=== PATIENT | male | born 1975 | race African-American/Black ===

== ENCOUNTER 2018-12-01 13:18 | Inpatient (IN) | payer SELFPAY ==
[~2018-12-01 13:18] MED LIST: ISOVUE-370 76%-LOCM 1 ML ONE
[2018-12-01] MEDS ORDERED: Morphine 4 MG/ML VIAL ONE ×2 (13:48→15:48)
[2018-12-01] MEDS ORDERED: Ketorolac Tromethamine 30 MG/ML VIAL ONE (13:48)
[2018-12-01 14:11] LABS: #Basophils 0.1 thou/uL (0.0-0.2); #Eosinphils 0.2 thou/uL (0.0-0.7); #Lymphocytes 1.9 thou/uL (1.20-3.40); #Monocytes 1.4 thou/uL (0.11-0.59); #Neutrophils 14.9 thou/uL (1.40-6.50); %Basophils 0.6 % (0.0-1.0); %Eosinophils 1.1 % (0.0-10.0); %Lymphocytes 10.1 % (21.0-51.0); %Monocytes 7.7 % (0.0-10.0); %Neutrophils 80.5 % (42.0-75.0); Hemoglobin 13.9 g/dL (14.0-18.0); Mean Corpuscular HGB CONC 30.8 g/dL (32.0-36.0); Mean Corpuscular Hemoglobin 24.7 pg (27.0-31.0); Mean Corpuscular Volume 80.2 fL (78.0-98.0); Mean Platelet Volume 8.7 fL (7.4-10.4); Platelet Count 174 thou/uL (130-400); RBC Distribution Width 13.9 % (11.5-14.5); Red Blood Cell (RBC) Count 5.61 mill/uL (4.70-6.10); White Blood Cell (WBC) Count 18.5 thou/uL (4.8-10.8)
[2018-12-01 14:19] LABS: Prothrombin Time 13.4 SEC (12.0-14.7)
[2018-12-01 14:44] LABS: ALT (SGPT) 18 U/L (8-55); AST (SGOT) 15 U/L (5-34); Albumin 4.6 g/dL (3.5-5.0); Alkaline Phosphatase 90 U/L (40-150); Anion Gap 12 mmol/L (10-20); BUN (Urea Nitrogen) 14 mg/dL (8.9-20.6); Bilirubin, Total 0.7 mg/dL (0.2-1.2); Calc. Creatinine Clearance 0 mL/min (70-130); Calcium 9.5 mg/dL (7.8-10.44); Carbon Dioxide 23 mmol/L (22-29); Chloride 107 mmol/L (98-107); Estimated GFR-MDRD 82; Globulin 3.1 g/dL (2.4-3.5); Glucose 102 mg/dL (70-105); Potassium 4.4 mmol/L (3.5-5.1); Protein, Total 7.7 g/dL (6.0-8.3); Sodium 138 mmol/L (136-145)
--- NOTE | 2018-12-01 15:10 | ULT ---
ULTRASOUND WITH DOPPLER DUPLEX VENOUS LOWER EXTREMITY LEFT: DATE: TIME: 1430 hours HISTORY: 43-year-old male with left lower extremity pain and swelling. Dr. Rios reported the deep venous thrombosis of the entire left lower extremity by telephone to nurse, Cherry Landry, of the emergency department at 1449 hours on 12/01/18. She was instructed to notify Dr. Greer as soon as possible. TECHNIQUE: Color flow Doppler, spectral waveform analysis of pulsed Doppler, and lozano-scale imaging with olegario mar and augmentation, were used to evaluate the left common femoral, femoral, popliteal, posterior t ibial, and superficial femoral, veins; and the proximal portions of the profunda femoral and greater saphenous, veins. FINDINGS: There is thrombus expanding and occluding the left common femoral, greater saphenous, profunda femora l, femoral, popliteal, and posterior tibial veins. There is little or no flow. IMPRESSION: Positive for acute, occlusive deep venous thrombosis of the entire left lower extremity. CODE CR. JN Earl POS: PAULETTE
--- NOTE | 2018-12-01 15:24 | CT ---
CT PULMONARY ANGIOGRAM WITH IV CONTRAST AND 3D POSTPROCESSING: Date: 12/01/18 HISTORY: Near syncope, left lower extremity deep venous thrombosis. FINDINGS: There is good contrast opacification of the pulmonary arterial vasculature without filling defects to suggest pulmonary embolism. The thoracic aorta is well opacified without aneurysm or dissection. No pneumothoraces, focal areas of consolidation, or lung masses are seen. There is scarring in the right lung. No pleural or pericardial effusions are noted. There are mild degenerative changes in the spin e. IMPRESSION: No CT evidence of pulmonary embolism. POS: [facility]
[2018-12-01] MEDS ORDERED: Enoxaparin Sodium 60 MG/0.6 ML SYRINGE ONE (15:48)
[2018-12-01] MEDS ORDERED: Ondansetron ODT 4 MG TAB PO PRN (16:36)
[2018-12-01] MEDS ORDERED: Acetaminophen 325 MG TAB PO PRN (16:36)
--- NOTE | 2018-12-01 16:54 | HP ---
REASON FOR ADMISSION: Extensive DVT of entire left lower extremity. HISTORY OF PRESENT ILLNESS AND REVIEW OF SYSTEMS: Mr. Queen is a pleasant 43-year-old man, who works as a regional company truck driver, presenting with progressively worsening swelling of the left leg from his calf up to his upper thigh. He first noted this 2 days ago, but has had intermittent aching in the left upper thigh since early last week. The patient states today he had further difficulty mobilizing at home and began to feel numbness in the left leg. He broke out in sweats and was concerned about a stroke, therefore contacted EMS. Since coming into the ED, the numbness has settled and his sensation is now intact. He has been given morphine, which eased the pain in the left leg. He has undergone a Doppler ultrasound showing an acute occlusive deep venous thrombosis of the entire left lower extremity. A CT angiogram was done showing no CT evidence of a pulmonary embolism. Laboratory studies done notable for white count of 18, otherwise unremarkable. The patient is afebrile with a temperature of 97.7. He has been started on Lovenox. At present, the patient denies having any chest pain, palpitations, or shortness of breath. He denies having any cough or hemoptysis. Has not fallen while in recent days except for symptoms associated with his leg. 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 He does tend to have long periods of sitting in between his jobs, which could be as long as 8 to 9 hours. However, during that time, he is moving about or resting in bed in the back of the truck. The patient denies having blood clots in the past. Denies any past medical problems. He reports having an uncle diagnosis of blood clots, but otherwise no other family members with blood clots or blood disorders. Denies any recent long flights. He reports having a very good appetite and has not had any abnormal loss of weight. Reports being healthy overall. He has regular stools. Denies any urinary symptoms. All other review of systems are negative. PAST MEDICAL HISTORY: None. PAST SURGICAL HISTORY: None. SOCIAL HISTORY: The patient lives alone and works as a regional company truck driver as mentioned above. He smokes 5 to 6 Black and Milds daily since he was 21. Reports no weekly use of cannabis when he is not working. Reports occasional cocaine use and the last time was on '. Reports occasional alcohol use and states it is usually 1 to 2 times a month. Denies any binge drinking. ALLERGIES: NO KNOWN DRUG ALLERGIES. CURRENT MEDICATIONS: None. PHYSICAL EXAMINATION: GENERAL: The patient appears well developed, well nourished, in no acute distress. He was found resting comfortably on the stretcher. VITAL SIGNS: Temperature 97.7, pulse 71, respirations 17, blood pressure 126/75, and O2 saturation 99% on room air. HEENT: Normocephalic and atraumatic. Pupils are equal, round, and reactive to light. Sclerae are without icterus. Oropharynx is clear. NECK: Supple without lymphadenopathy. LUNGS: Clear to auscultation bilaterally without wheezes, rales, or rhonchi. CARDIAC: Regular rate and rhythm without audible murmurs, rubs, or gallops. ABDOMEN: Soft, nontender, and nondistended. Normoactive bowel sounds present. EXTREMITIES: The entire left leg is significantly enlarged as compared to the right leg. His calf is very tense. No edema. Sensation intact. Pedal pulses are strong and equal bilaterally. NEUROLOGIC: Alert and oriented x3. SKIN: Without rash or jaundice. LABORATORY DATA: White blood count 18.5, hemoglobin 13.9, hematocrit 45, and platelets 124. PT 13.4, INR 1.0, and PTT 24. Sodium 138, potassium 4.4, BUN 14, creatinine 1.18, GFR 82, total bilirubin 0.7, alkaline phosphatase 90, AST 15, and ALT 18. Troponin less than 0.010. Lactic acid 1.1. IMAGING DATA: 1. Venous ultrasound of the left extremity showed a thrombus expanding and occluding the left common femoral, greater saphenous, profunda femoral, femoral, popliteal, and posterior tibialis veins with little or no flow. 2. CT of chest, no CT evidence of pulmonary embolism. IMPRESSION AND PLAN: Mr. Queen will be admitted for management of the following conditions; 1. Extensive left extremity deep vein thrombosis. The patient is being started on Lovenox, we will continue. No mechanical SCDs. 2. Leukocytosis. The patient is afebrile with no signs of infection. Continue to monitor. 3. Anticoagulation. As above, the patient is being served on Lovenox with plans to discharge on Eliquis if he has access. 4. Gastrointestinal prophylaxis. The patient's case was discussed with Dr. Jung, who agrees with plan of care as described above. Job ID: [id number]
--- NOTE | 2018-12-01 17:13 | RAD ---
PA AND LATERAL VIEWS CHEST: Date: 12/01/18 HISTORY: Fever. Left leg pain. FINDINGS: The heart size is normal. The lungs are expanded without focal areas of consolidation, pneumothoraces , or pleural effusions. No acute osseous abnormalities are seen. IMPRESSION: No radiographic evidence of acute cardiopulmonary process. POS: [facility]
[2018-12-01 19:27] VITALS: BMI 19.9
[2018-12-01] MEDS: Senokot S 8.6-50 MG TAB PO SCH (21:17)
[2018-12-01] MEDS: Famotidine 20 MG TAB PO SCH (21:17)
[2018-12-01] MEDS ORDERED: traMADol HCl 50 MG TAB PO SCH (23:15)
[2018-12-02] MEDS: Apixaban 5 MG TAB PO SCH ×2 (05:10→17:50)
[2018-12-02 05:33] LABS: #Basophils 0.1 thou/uL (0.0-0.2); #Eosinphils 0.4 thou/uL (0.0-0.7); #Monocytes 1.4 thou/uL (0.11-0.59); #Neutrophils 7.5 thou/uL (1.40-6.50); %Basophils 1.1 % (0.0-1.0); %Lymphocytes 24.2 % (21.0-51.0); %Monocytes 11.1 % (0.0-10.0); %Neutrophils 60.6 % (42.0-75.0); Hemoglobin 12.5 g/dL (14.0-18.0); Mean Corpuscular HGB CONC 31.7 g/dL (32.0-36.0); Mean Corpuscular Hemoglobin 25.2 pg (27.0-31.0); Mean Corpuscular Volume 79.4 fL (78.0-98.0); Mean Platelet Volume 8.6 fL (7.4-10.4); Platelet Count 160 thou/uL (130-400); RBC Distribution Width 13.7 % (11.5-14.5); Red Blood Cell (RBC) Count 4.97 mill/uL (4.70-6.10); White Blood Cell (WBC) Count 12.4 thou/uL (4.8-10.8)
[2018-12-02 05:51] LABS: Anion Gap 11 mmol/L (10-20); BUN (Urea Nitrogen) 15 mg/dL (8.9-20.6); Calc. Creatinine Clearance 81 mL/min (70-130); Carbon Dioxide 27 mmol/L (22-29); Chloride 106 mmol/L (98-107); Estimated GFR-MDRD Greater than 90; Glucose 98 mg/dL (70-105); Potassium 4.3 mmol/L (3.5-5.1); Sodium 140 mmol/L (136-145)
[2018-12-02] MEDS: Acetaminophen/Codeine 30-300mg Tablet PO PRN ×2 (08:39→16:34)
[2018-12-02] MEDS: Senokot S 8.6-50 MG TAB PO SCH ×2 (08:41→19:58)
[2018-12-02] MEDS: Famotidine 20 MG TAB PO SCH ×2 (08:41→19:57)
--- NOTE | 2018-12-02 12:57 | PDOC.PN ---
- Subjective Encounter Start Date: 12/02/18 Encounter Start Time: 09:20 Pt seen for followup re: DVT. Reports LLE pain and swelling. - Objective Resuscitation Status - Order Detail: 12/01/18 16:33 Resuscitation Status Routine Co-Sign Provider: Resuscitation Status: FULL: Full Resuscitation Vital Signs & Weight: Vital Signs (12 hours) Temp Pulse Resp BP Pulse Ox 12/02/18 11:37 98.0 F 69 18 112/68 98 12/02/18 08:17 98.2 F 75 14 108/71 97 12/02/18 08:00 98 12/02/18 04:00 97.9 F 75 20 118/74 98 Weight Weight 134 lb 14.766 oz Result Diagrams: 12/02/18 05:08 12/02/18 05:07 Phys Exam - Physical Examination Constitutional: NAD HEENT: moist MMs, sclera anicteric, oral pharynx no lesions, 2+ tonsils Neck: no nodes, no JVD, supple, full ROM Respiratory: clear to auscultation bilateral Cardiovascular: RRR, no rub S1, S2 Gastrointestinal: soft, non-tender, no distention, positive bowel sounds Musculoskeletal: edema present LLE swelling Neurological: moves all 4 limbs Psychiatric: normal affect, A&O x 3 Dx/Plan (1) DVT (deep venous thrombosis) Code(s): I82.409 - ACUTE EMBOLISM AND THOMBOS UNSP DEEP VN UNSP LOWER EXTREMITY Status: Acute Comment: Discussed with pt re: risks vs benefits of warfarin vs NOACS. Pt deciding. (2) Tobacco abuse Code(s): Z72.0 - TOBACCO USE Status: Chronic Comment: Pt counseled re: tobacco cessation. - Plan * . Review of Systems - Review of Systems Constitutional: negative: fever, chills, sweats, weakness, malaise Respiratory: negative: Cough, Shortness of Breath, SOB with Excertion, Pleuritic Pain, Wheezing Cardiovascular: edema. negative: chest pain, palpitations, orthopnea, paroxysmal nocturnal dyspnea, light headedness Gastrointestinal: negative: Nausea, Vomiting, Abdominal Pain, Diarrhea, Constipation, Melena, Hematochezia Genitourinary: negative: Dysuria, Frequency, Incontinence, Hematuria, Retention Musculoskeletal: Leg Pain. negative: Neck Pain, Shoulder Pain, Arm Pain, Back Pain, Hand Pain, Foot Pain - Medications/Allergies Allergies/Adverse Reactions: Allergies Allergy/AdvReac Type Severity Reaction Status Date / Time No Known Allergies Allergy Unverified 12/01/18 16:43 Medications: Current Medications Acetaminophen (Tylenol) 650 mg PO Q4H PRN PRN Reason: Headache/Fever/Mild Pain (1-3) Acetaminophen/Codeine Phosphate (Tylenol #3) 1 tab PO Q6H PRN PRN Reason: Mild Pain (1-3) Acetaminophen/Codeine Phosphate (Tylenol #3) 2 tab PO Q6H PRN PRN Reason: Moderate Pain (4-6) Last Admin: 12/02/18 08:39 Dose: 2 tab Apixaban (Eliquis) 5 mg PO 0600,1800 [facility] Last Admin: 12/02/18 05:10 Dose: 5 mg Famotidine (Pepcid) 20 mg PO BID [facility] Last Admin: 12/02/18 08:41 Dose: 20 mg Ondansetron HCl (Zofran Odt) 4 mg PO Q6H PRN PRN Reason: Nausea/Vomiting Senna/Docusate Sodium (Senokot S) 2 tab PO BID [facility] Last Admin: 12/02/18 08:41 Dose: Not Given Sodium Chloride (Flush - Normal Saline) 10 ml IVF Q12HR PRN PRN Reason: Saline Flush Sodium Chloride (Flush - Normal Saline) 10 ml IVF PRN PRN PRN Reason: Saline Flush
[2018-12-02] MEDS: HYDROcodone/Acetaminophen 5/325 mg Tablet PO PRN (22:50)
[2018-12-03] MEDS: Apixaban 5 MG TAB PO SCH ×2 (06:06→17:07)
[2018-12-03] MEDS: HYDROcodone/Acetaminophen 5/325 mg Tablet PO PRN ×3 (06:06→23:04)
[2018-12-03] MEDS: Famotidine 20 MG TAB PO SCH ×2 (08:51→20:06)
[2018-12-03] MEDS: Senokot S 8.6-50 MG TAB PO SCH ×2 (08:51→20:05)
[2018-12-03] MEDS ORDERED: traMADol HCl 50 MG TAB PO PRN (12:31)
[2018-12-03] MEDS ORDERED: Iopamidol 370 76% 100 ML VIAL ONE (12:33)
[2018-12-03] MEDS ORDERED: Ketorolac Tromethamine 30 MG/ML VIAL IVP SCH (12:45)
--- NOTE | 2018-12-03 15:07 | CT ---
CT ABDOMEN AND PELVIS WITH IV CONTRAST: DATE: 12/03/2018. PROVIDED CLINICAL HISTORY: DVT, evaluate for occult malignancy. FINDINGS: Comparison CT angiogram of chest 12/01/2018. There is smoothly marginated pleural thickening seen at t he posteromedial and anterolateral aspects of the visualized right lower hemithorax. Simple-appearing cysts are seen involving the liver. The solid abdominal organs demonstrate an other grewal unremarkable CT appearance. There is no bowel dilatation, inflammatory fat stranding, free fluid, or lymph node enlargement appar ent. The osseous structures demonstrate no concerning osteoblastic or osteolytic lesions. Increased densi ty and thickening of the subcutaneous adipose layer and intermuscular fascial planes in the visualize d left upper extremity is compatible with the known history of left lower extremity DVT. IMPRESSION: 1. No evidence for an acute process involving the abdomen and pelvis. 2. Smoothly marginated pleural thickening involving portions of the right hemithorax, possibly refle cting sequelae of prior pleural inflammation. POS: [facility]
--- NOTE | 2018-12-03 17:58 | PDOC.PN ---
- Subjective Encounter Start Date: 12/03/18 Encounter Start Time: 09:20 Pt seen for followup re: DVT. Still has a lot of LLE pain. - Objective Resuscitation Status - Order Detail: 12/01/18 16:33 Resuscitation Status Routine Co-Sign Provider: Resuscitation Status: FULL: Full Resuscitation Vital Signs & Weight: Vital Signs (12 hours) Temp Pulse Resp BP Pulse Ox 12/03/18 16:00 98.2 F 74 18 99/62 97 12/03/18 12:40 98.0 F 71 18 102/65 98 12/03/18 08:10 97.9 F 77 18 112/69 98 12/03/18 08:00 98 Weight Weight 134 lb 14.766 oz I&O: 12/02/18 12/03/18 12/04/18 06:59 06:59 06:59 Output Total 600 Balance -600 Result Diagrams: 12/02/18 05:08 12/02/18 05:07 Phys Exam - Physical Examination Constitutional: NAD HEENT: moist MMs Neck: supple Respiratory: clear to auscultation bilateral Cardiovascular: RRR Gastrointestinal: soft LLE swelling Neurological: moves all 4 limbs Psychiatric: normal affect Dx/Plan (1) DVT (deep venous thrombosis) Code(s): I82.409 - ACUTE EMBOLISM AND THOMBOS UNSP DEEP VN UNSP LOWER EXTREMITY Status: Acute Comment: continue Eliquis, PRN pain medications (2) Tobacco abuse Code(s): Z72.0 - TOBACCO USE Status: Chronic Comment: Pt counseled re: tobacco cessation. - Plan * . Review of Systems - Review of Systems Respiratory: negative: Cough, Shortness of Breath, SOB with Excertion, Pleuritic Pain, Wheezing Cardiovascular: negative: chest pain, palpitations, orthopnea, paroxysmal nocturnal dyspnea, edema, light headedness Musculoskeletal: Leg Pain - Medications/Allergies Allergies/Adverse Reactions: Allergies Allergy/AdvReac Type Severity Reaction Status Date / Time No Known Allergies Allergy Unverified 12/01/18 16:43 Medications: Current Medications Acetaminophen (Tylenol) 650 mg PO Q4H PRN PRN Reason: Headache/Fever/Mild Pain (1-3) Acetaminophen/Codeine Phosphate (Tylenol #3) 1 tab PO Q6H PRN PRN Reason: Mild Pain (1-3) Hydrocodone Bitart/Acetaminophen (Ingalls 5/325) 1 tab PO Q6H PRN PRN Reason: Pain 4-6 Last Admin: 12/03/18 17:08 Dose: 1 tab Apixaban (Eliquis) 5 mg PO 0600,1800 [facility] Last Admin: 12/03/18 17:07 Dose: 5 mg Famotidine (Pepcid) 20 mg PO BID [facility] Last Admin: 12/03/18 08:51 Dose: 20 mg Ketorolac Tromethamine (Toradol) 15 mg IVP Q8H PRN PRN Reason: Pain Stop: 12/08/18 12:34 Ondansetron HCl (Zofran Odt) 4 mg PO Q6H PRN PRN Reason: Nausea/Vomiting Senna/Docusate Sodium (Senokot S) 2 tab PO BID [facility] Last Admin: 12/03/18 08:51 Dose: 2 tab Sodium Chloride (Flush - Normal Saline) 10 ml IVF Q12HR PRN PRN Reason: Saline Flush Sodium Chloride (Flush - Normal Saline) 10 ml IVF PRN PRN PRN Reason: Saline Flush Tramadol HCl (Ultram) 50 mg PO Q6H PRN PRN Reason: Moderate Pain (4-6) Tramadol HCl (Ultram) 100 mg PO Q6H PRN PRN Reason: Severe Pain (7-10)
[2018-12-03] MEDS: traMADol HCl 50 MG TAB PO PRN (20:06)
[2018-12-04] MEDS: traMADol HCl 50 MG TAB PO PRN ×3 (05:37→22:20)
[2018-12-04] MEDS: Apixaban 5 MG TAB PO SCH ×2 (05:42→17:25)
[2018-12-04] MEDS: HYDROcodone/Acetaminophen 5/325 mg Tablet PO PRN (09:07)
[2018-12-04] MEDS: Famotidine 20 MG TAB PO SCH ×2 (09:07→20:30)
[2018-12-04] MEDS: Senokot S 8.6-50 MG TAB PO SCH ×2 (09:07→20:31)
[2018-12-04] MEDS: Ketorolac Tromethamine 30 MG/ML VIAL IVP PRN ×2 (13:17→21:01)
--- NOTE | 2018-12-04 15:39 | PDOC.PN ---
- Subjective Encounter Start Date: 12/04/18 Encounter Start Time: 10:00 Pt seen for followup re: DVT. pain still +. walking with assistance. - Objective Resuscitation Status - Order Detail: 12/01/18 16:33 Resuscitation Status Routine Co-Sign Provider: Resuscitation Status: FULL: Full Resuscitation MAR Reviewed: Yes Vital Signs & Weight: Vital Signs (12 hours) Temp Pulse Resp BP Pulse Ox 12/04/18 08:10 98.0 F 78 18 103/58 L 97 12/04/18 08:00 97 12/04/18 04:00 97.7 F 68 16 103/58 L 97 Weight Weight 134 lb 14.766 oz I&O: 12/03/18 12/04/18 12/05/18 06:59 06:59 06:59 Intake Total 510 Output Total 600 Balance -90 Result Diagrams: 12/02/18 05:08 12/02/18 05:07 Additional Labs: Labs reviewed by me Phys Exam - Physical Examination Constitutional: NAD HEENT: moist MMs Neck: supple Respiratory: clear to auscultation bilateral Cardiovascular: RRR Gastrointestinal: soft Neurological: moves all 4 limbs Psychiatric: normal affect Dx/Plan (1) DVT (deep venous thrombosis) Code(s): I82.409 - ACUTE EMBOLISM AND THOMBOS UNSP DEEP VN UNSP LOWER EXTREMITY Status: Acute Comment: on Eliquis, continue PRN pain medications (2) Tobacco abuse Code(s): Z72.0 - TOBACCO USE Status: Chronic Comment: Pt counseled re: tobacco cessation. - Plan * . titrate pain medications, discharge when ambulation improves Review of Systems - Review of Systems Respiratory: negative: Cough, Shortness of Breath, SOB with Excertion, Pleuritic Pain, Wheezing Cardiovascular: negative: chest pain, palpitations, orthopnea, paroxysmal nocturnal dyspnea, edema, light headedness Musculoskeletal: Leg Pain - Medications/Allergies Allergies/Adverse Reactions: Allergies Allergy/AdvReac Type Severity Reaction Status Date / Time No Known Allergies Allergy Unverified 12/01/18 16:43 Medications: Current Medications Acetaminophen (Tylenol) 650 mg PO Q4H PRN PRN Reason: Headache/Fever/Mild Pain (1-3) Acetaminophen/Codeine Phosphate (Tylenol #3) 1 tab PO Q6H PRN PRN Reason: Mild Pain (1-3) Apixaban (Eliquis) 5 mg PO 0600,1800 [facility] Last Admin: 12/04/18 05:42 Dose: 5 mg Famotidine (Pepcid) 20 mg PO BID [facility] Last Admin: 12/04/18 09:07 Dose: 20 mg Ketorolac Tromethamine (Toradol) 15 mg IVP Q8H PRN PRN Reason: Pain Stop: 12/08/18 12:34 Last Admin: 12/04/18 13:17 Dose: 15 mg Ondansetron HCl (Zofran Odt) 4 mg PO Q6H PRN PRN Reason: Nausea/Vomiting Senna/Docusate Sodium (Senokot S) 2 tab PO BID [facility] Last Admin: 12/04/18 09:07 Dose: Not Given Sodium Chloride (Flush - Normal Saline) 10 ml IVF Q12HR PRN PRN Reason: Saline Flush Last Admin: 12/03/18 20:07 Dose: 10 ml Sodium Chloride (Flush - Normal Saline) 10 ml IVF PRN PRN PRN Reason: Saline Flush Tramadol HCl (Ultram) 50 mg PO Q6H PRN PRN Reason: Moderate Pain (4-6) Tramadol HCl (Ultram) 100 mg PO Q6H PRN PRN Reason: Severe Pain (7-10) Last Admin: 12/04/18 05:37 Dose: 100 mg
[2018-12-04] MEDS: Acetaminophen/Codeine 30-300mg Tablet PO PRN (19:24)
[2018-12-04 19:37] LABS: Bilirubin Negative (Negative); Blood, Urine Negative (Negative); Clarity CLEAR (Clear); Glucose, Urine (Dipstick) Negative (Negative); Leukocyte Negative (Negative); Nitrite Negative (Negative); Protein, Urine (Dipstick) Negative (Neg-Trace); Specific Gravity, Urine 1.035 (1.002-1.036); Urobilinogen 0.2 mg/dL (0.2-1.0); pH, Urine 5.5 (5.0-9.0)
[2018-12-04 19:38] LABS: Bacteria/HPF None Seen HPF (None Seen); Hyaline Casts/LPF 4-6 HYALINE CAST LPF (0-3 Hyaline); Pathc Cast-AUWi Flag 0.58 (0-2.49); RBC/HPF 0-3 HPF (0-3); Squamous Epithelial 0-3 HPF (0-3); WBC/HPF 0-3 HPF (0-3)
[2018-12-04 19:43] LABS: Urine Culture Reflex No No
[2018-12-05] MEDS: Acetaminophen/Codeine 30-300mg Tablet PO PRN ×2 (02:03→17:49)
[2018-12-05] MEDS: Apixaban 5 MG TAB PO SCH ×2 (05:49→17:49)
[2018-12-05] MEDS: traMADol HCl 50 MG TAB PO PRN ×3 (06:18→20:36)
[2018-12-05] MEDS: Ketorolac Tromethamine 30 MG/ML VIAL IVP PRN ×2 (10:03→17:50)
[2018-12-05] MEDS: Senokot S 8.6-50 MG TAB PO SCH ×2 (10:05→20:35)
[2018-12-05] MEDS: Famotidine 20 MG TAB PO SCH ×2 (10:05→20:35)
--- NOTE | 2018-12-05 14:30 | PDOC.PN ---
- Subjective Encounter Start Date: 12/05/18 Encounter Start Time: 09:20 Pt seen for followup re: DVT. Says leg pain is 05/04. - Objective Resuscitation Status - Order Detail: 12/01/18 16:33 Resuscitation Status Routine Co-Sign Provider: Resuscitation Status: FULL: Full Resuscitation MAR Reviewed: Yes Vital Signs & Weight: Vital Signs (12 hours) Temp Pulse Resp BP Pulse Ox 12/05/18 08:04 98.1 F 69 16 121/76 97 12/05/18 08:00 97 Weight Weight 134 lb 14.766 oz I&O: 12/04/18 12/05/18 12/06/18 06:59 06:59 06:59 Intake Total 510 810.5 Output Total 600 Balance -90 810.5 Result Diagrams: 12/06/18 05:24 12/06/18 05:24 Additional Labs: labs reviewed by me Phys Exam - Physical Examination Constitutional: NAD HEENT: moist MMs Neck: supple Respiratory: clear to auscultation bilateral Cardiovascular: RRR Gastrointestinal: soft LLE swelling Neurological: moves all 4 limbs Psychiatric: normal affect Dx/Plan (1) DVT (deep venous thrombosis) Code(s): I82.409 - ACUTE EMBOLISM AND THOMBOS UNSP DEEP VN UNSP LOWER EXTREMITY Status: Acute Comment: continue Eliquis and PRN pain medications (2) Tobacco abuse Code(s): Z72.0 - TOBACCO USE Status: Chronic - Plan plan discussed w/ family, out of bed/ambulate * . Review of Systems - Review of Systems Cardiovascular: negative: chest pain, palpitations, orthopnea, paroxysmal nocturnal dyspnea, edema, light headedness Gastrointestinal: negative: Nausea, Vomiting, Abdominal Pain, Diarrhea, Constipation, Melena, Hematochezia - Medications/Allergies Allergies/Adverse Reactions: Allergies Allergy/AdvReac Type Severity Reaction Status Date / Time No Known Allergies Allergy Unverified 12/01/18 16:43 Medications: Current Medications Acetaminophen (Tylenol) 650 mg PO Q4H PRN PRN Reason: Headache/Fever/Mild Pain (1-3) Acetaminophen/Codeine Phosphate (Tylenol #3) 1 tab PO Q6H PRN PRN Reason: Mild Pain (1-3) Last Admin: 12/05/18 02:03 Dose: 1 tab Apixaban (Eliquis) 5 mg PO 0600,1800 [facility] Last Admin: 12/05/18 05:49 Dose: 5 mg Famotidine (Pepcid) 20 mg PO BID [facility] Last Admin: 12/05/18 10:05 Dose: 20 mg Ketorolac Tromethamine (Toradol) 15 mg IVP Q8H PRN PRN Reason: Pain Stop: 12/08/18 12:34 Last Admin: 12/05/18 10:03 Dose: 15 mg Ondansetron HCl (Zofran Odt) 4 mg PO Q6H PRN PRN Reason: Nausea/Vomiting Senna/Docusate Sodium (Senokot S) 2 tab PO BID [facility] Last Admin: 12/05/18 10:05 Dose: 2 tab Sodium Chloride (Flush - Normal Saline) 10 ml IVF Q12HR PRN PRN Reason: Saline Flush Last Admin: 12/03/18 20:07 Dose: 10 ml Sodium Chloride (Flush - Normal Saline) 10 ml IVF PRN PRN PRN Reason: Saline Flush Tramadol HCl (Ultram) 50 mg PO Q6H PRN PRN Reason: Moderate Pain (4-6) Tramadol HCl (Ultram) 100 mg PO Q6H PRN PRN Reason: Severe Pain (7-10) Last Admin: 12/05/18 14:24 Dose: 100 mg
[2018-12-06] MEDS: Acetaminophen/Codeine 30-300mg Tablet PO PRN ×4 (00:33→21:31)
[2018-12-06] MEDS: Ketorolac Tromethamine 30 MG/ML VIAL IVP PRN ×3 (02:09→17:34)
[2018-12-06] MEDS: Apixaban 5 MG TAB PO SCH ×2 (05:51→17:34)
[2018-12-06 05:57] LABS: #Basophils 0.1 thou/uL (0.0-0.2); #Eosinphils 0.5 thou/uL (0.0-0.7); #Lymphocytes 2.8 thou/uL (1.20-3.40); #Monocytes 1.1 thou/uL (0.11-0.59); #Neutrophils 6.1 thou/uL (1.40-6.50); %Basophils 0.9 % (0.0-1.0); %Lymphocytes 26.2 % (21.0-51.0); %Monocytes 9.9 % (0.0-10.0); %Neutrophils 58.1 % (42.0-75.0); Hemoglobin 11.2 g/dL (14.0-18.0); Mean Corpuscular Hemoglobin 24.6 pg (27.0-31.0); Mean Corpuscular Volume 79.3 fL (78.0-98.0); Mean Platelet Volume 8.7 fL (7.4-10.4); Platelet Count 194 thou/uL (130-400); RBC Distribution Width 13.4 % (11.5-14.5); Red Blood Cell (RBC) Count 4.56 mill/uL (4.70-6.10); White Blood Cell (WBC) Count 10.6 thou/uL (4.8-10.8)
[2018-12-06 06:32] LABS: Anion Gap 11 mmol/L (10-20); BUN (Urea Nitrogen) 20 mg/dL (8.9-20.6); Calc. Creatinine Clearance 66 mL/min (70-130); Calcium 9.2 mg/dL (7.8-10.44); Carbon Dioxide 28 mmol/L (22-29); Chloride 105 mmol/L (98-107); Estimated GFR-MDRD 75; Glucose 84 mg/dL (70-105); Sodium 139 mmol/L (136-145)
[2018-12-06] MEDS: Famotidine 20 MG TAB PO SCH ×2 (07:59→20:15)
[2018-12-06] MEDS: Senokot S 8.6-50 MG TAB PO SCH ×2 (08:00→20:15)
[2018-12-06] MEDS ORDERED: Bisacodyl 5 MG TAB PO PRN (10:47)
[2018-12-06] MEDS: traMADol HCl 50 MG TAB PO PRN ×2 (10:51→19:38)
[2018-12-06] MEDS ORDERED: Bisacodyl 5 MG TAB PO SCH (11:00)
--- NOTE | 2018-12-06 18:59 | PDOC.PN ---
- Subjective Encounter Start Date: 12/06/18 Encounter Start Time: 18:57 Pt seen for followup re: DVT. c/o worsening leg swelling. No fevers or chills. - Objective Resuscitation Status - Order Detail: 12/01/18 16:33 Resuscitation Status Routine Co-Sign Provider: Resuscitation Status: FULL: Full Resuscitation MAR Reviewed: Yes Vital Signs & Weight: Vital Signs (12 hours) Temp Pulse Resp BP Pulse Ox 12/06/18 07:59 97 12/06/18 07:39 98.3 F 71 16 112/72 97 Weight Weight 134 lb 14.766 oz I&O: 12/05/18 12/06/18 12/07/18 06:59 06:59 06:59 Intake Total 810.5 820.5 Output Total 400 Balance 810.5 420.5 Result Diagrams: 12/06/18 05:24 12/06/18 05:24 Additional Labs: Labs reviewed by me Phys Exam - Physical Examination Constitutional: NAD HEENT: moist MMs Neck: supple Respiratory: clear to auscultation bilateral Cardiovascular: RRR Gastrointestinal: soft LLE swelling Neurological: moves all 4 limbs Psychiatric: normal affect Dx/Plan (1) DVT (deep venous thrombosis) Code(s): I82.409 - ACUTE EMBOLISM AND THOMBOS UNSP DEEP VN UNSP LOWER EXTREMITY Status: Acute Comment: continue Eliquis and PRN pain medications. Will consult oncology in AM to see if any other treatments need to be pursued, given worsening leg edema. Pt also reports 2 uncles and grandmother with VTE, may need further testing. (2) Tobacco abuse Code(s): Z72.0 - TOBACCO USE Status: Chronic - Plan * . Review of Systems - Review of Systems Respiratory: negative: Cough, Shortness of Breath, SOB with Excertion, Pleuritic Pain, Wheezing Cardiovascular: edema. negative: chest pain, palpitations, orthopnea, paroxysmal nocturnal dyspnea, light headedness Musculoskeletal: Leg Pain - Medications/Allergies Allergies/Adverse Reactions: Allergies Allergy/AdvReac Type Severity Reaction Status Date / Time No Known Allergies Allergy Unverified 12/01/18 16:43 Medications: Current Medications Acetaminophen (Tylenol) 650 mg PO Q4H PRN PRN Reason: Headache/Fever/Mild Pain (1-3) Acetaminophen/Codeine Phosphate (Tylenol #3) 1 tab PO Q6H PRN PRN Reason: Mild Pain (1-3) Last Admin: 12/06/18 15:35 Dose: 1 tab Apixaban (Eliquis) 5 mg PO 0600,1800 [facility] Last Admin: 12/06/18 17:34 Dose: 5 mg Bisacodyl (Dulcolax) 10 mg PO DAILYPRN PRN PRN Reason: Constipation Famotidine (Pepcid) 20 mg PO BID [facility] Last Admin: 12/06/18 07:59 Dose: 20 mg Ketorolac Tromethamine (Toradol) 15 mg IVP Q8H PRN PRN Reason: Pain Stop: 12/08/18 12:34 Last Admin: 12/06/18 17:34 Dose: 15 mg Ondansetron HCl (Zofran Odt) 4 mg PO Q6H PRN PRN Reason: Nausea/Vomiting Senna/Docusate Sodium (Senokot S) 2 tab PO BID [facility] Last Admin: 12/06/18 08:00 Dose: 2 tab Sodium Chloride (Flush - Normal Saline) 10 ml IVF Q12HR PRN PRN Reason: Saline Flush Last Admin: 12/03/18 20:07 Dose: 10 ml Sodium Chloride (Flush - Normal Saline) 10 ml IVF PRN PRN PRN Reason: Saline Flush Last Admin: 12/06/18 02:09 Dose: 10 ml Tramadol HCl (Ultram) 50 mg PO Q6H PRN PRN Reason: Moderate Pain (4-6) Tramadol HCl (Ultram) 100 mg PO Q6H PRN PRN Reason: Severe Pain (7-10) Last Admin: 12/06/18 10:51 Dose: 100 mg
[2018-12-07] MEDS: traMADol HCl 50 MG TAB PO PRN ×4 (01:34→19:56)
[2018-12-07] MEDS: Ketorolac Tromethamine 30 MG/ML VIAL IVP PRN ×3 (01:35→17:27)
[2018-12-07] MEDS: Acetaminophen/Codeine 30-300mg Tablet PO PRN ×4 (03:38→21:41)
[2018-12-07] MEDS: Apixaban 5 MG TAB PO SCH ×2 (05:26→17:27)
[2018-12-07 05:49] LABS: #Basophils 0.1 thou/uL (0.0-0.2); #Eosinphils 0.6 thou/uL (0.0-0.7); #Lymphocytes 2.8 thou/uL (1.20-3.40); #Monocytes 1.1 thou/uL (0.11-0.59); #Neutrophils 5.8 thou/uL (1.40-6.50); %Basophils 0.8 % (0.0-1.0); %Eosinophils 5.7 % (0.0-10.0); %Lymphocytes 26.7 % (21.0-51.0); %Monocytes 10.6 % (0.0-10.0); %Neutrophils 56.2 % (42.0-75.0); Hemoglobin 11.2 g/dL (14.0-18.0); Mean Corpuscular HGB CONC 30.6 g/dL (32.0-36.0); Mean Corpuscular Hemoglobin 24.3 pg (27.0-31.0); Mean Corpuscular Volume 79.4 fL (78.0-98.0); Mean Platelet Volume 8.3 fL (7.4-10.4); Platelet Count 220 thou/uL (130-400); RBC Distribution Width 13.2 % (11.5-14.5); Red Blood Cell (RBC) Count 4.63 mill/uL (4.70-6.10); White Blood Cell (WBC) Count 10.4 thou/uL (4.8-10.8)
[2018-12-07 06:17] LABS: Anion Gap 10 mmol/L (10-20); BUN (Urea Nitrogen) 21 mg/dL (8.9-20.6); Calc. Creatinine Clearance 61 mL/min (70-130); Calcium 9.2 mg/dL (7.8-10.44); Carbon Dioxide 25 mmol/L (22-29); Chloride 104 mmol/L (98-107); Estimated GFR-MDRD 70; Glucose 74 mg/dL (70-105); Potassium 4.9 mmol/L (3.5-5.1); Sodium 134 mmol/L (136-145)
[2018-12-07] MEDS: Famotidine 20 MG TAB PO SCH ×2 (07:18→19:56)
[2018-12-07] MEDS: Senokot S 8.6-50 MG TAB PO SCH ×2 (07:18→19:55)
--- NOTE | 2018-12-07 14:57 | CON ---
DATE OF CONSULTATION: REASON FOR CONSULT: DVT. HISTORY OF PRESENT ILLNESS: Mr. 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 He had progressive swelling in his left leg over the past week. It started in his upper thigh and extended down to his calf. He began to have numbness and tingling in that leg, so called [address] angio of the chest, which was negative for pulmonary embolism. He underwent a vascular ultrasound of his left lower extremity. There was a thrombus expanding and occluding the left common femoral, great saphenous, profunda femoral, femoral popliteal, and posterior tibial veins. The patient was admitted for anticoagulation and started on therapeutic Lovenox. He has been transitioned to Eliquis. He has two uncles that had leg clots, one of which was a truck service manager. His grandmother had a stroke and pulmonary embolism late in life. No other family history of blood clots. PAST MEDICAL HISTORY: None. PAST SURGICAL HISTORY: None. ALLERGIES: NO KNOWN DRUG ALLERGIES. HOME MEDICATIONS: Motrin. FAMILY HISTORY: Uncle, who is a truck service manager with a DVT. Grandmother with pulmonary embolism and another uncle with DVT, unknown circumstances. SOCIAL HISTORY: Works in the [employer]. Lives in [place]. Smoker. No alcohol or illicit drug use. REVIEW OF SYSTEMS: A 10-point review of systems is negative except for swelling and pain in his left lower extremity. PHYSICAL EXAMINATION: VITAL SIGNS: Temperature is 97.0, pulse is 82, respiratory rate is 16, BP is 122/73, and 97% on room air. GENERAL: This is a well-developed, well-nourished male, in no acute distress. HEENT: Normocephalic and atraumatic. Pupils are equal and reactive to light. NECK: Supple. CV: Regular rate and rhythm. LUNGS: Clear. ABDOMEN: Soft and nontender. Bowel sounds are positive. EXTREMITIES: His left lower extremity has 1+ edema from his groin to his ankle. KOKO hose on. NEUROLOGIC: Nonfocal. PSYCH: The patient is alert, oriented, and appropriate. PERTINENT LABS AND X-RAYS: Current WBCs are 10.4, hemoglobin 11.2, hematocrit 36.8, platelet count is 220, 56% neutrophils, and 26% lymphocytes. PT is 13.4, INR is 1.0, and PTT is 24.0. Sodium is 134, potassium 4.9, chloride 104, CO2 is 25, BUN is 21, creatinine 1.36, calcium is 9.2, total bilirubin is 0.7, AST is 15, ALT is 18, alkaline phosphatase is 90, serum total protein 7.7, albumin 4.6, and globulin 3.1. Urine is negative. Radiology per HPI. ASSESSMENT: 1. Deep venous thrombosis of the left lower extremity, provoked. 2. Tobacco use. DISCUSSION: The patient has been transitioned to oral Eliquis twice daily. Recommendation is that he stay on this for 6 months. Given the extensive thrombus, no further workup is required at this time as acute hypercoagulation panel would be skewed due to anticoagulation. The patient was encouraged to stop smoking. We discussed increasing activity with driving and suggested a daily aspirin once his anticoagulation has been completed. He was instructed to follow up with primary care for further monitoring. Thank you for the consult. Job ID: [id number] DANE
--- NOTE | 2018-12-07 16:21 | PDOC.PN ---
- Subjective Encounter Start Date: 12/07/18 Encounter Start Time: 10:20 Pt seen for followup re: CVT. c/o leg pain. - Objective Resuscitation Status - Order Detail: 12/07/18 16:10 Resuscitation Status Routine Resuscitation Status: DNAR: NO Resuscitation Discussed with: son and daughter ANNIE Reviewed: Yes Vital Signs & Weight: Vital Signs (12 hours) Temp Pulse Resp BP Pulse Ox 12/07/18 07:48 97.0 F L 82 16 122/73 97 Weight Weight 134 lb 14.766 oz I&O: 12/06/18 12/07/18 12/08/18 06:59 06:59 06:59 Intake Total 820.5 760 Output Total 400 200 Balance 420.5 560 Result Diagrams: 12/07/18 05:21 12/07/18 05:21 Additional Labs: Labs reviewed by me Phys Exam - Physical Examination Constitutional: NAD HEENT: moist MMs Neck: supple Respiratory: clear to auscultation bilateral Cardiovascular: RRR Gastrointestinal: soft Musculoskeletal: edema present Neurological: moves all 4 limbs Psychiatric: normal affect Dx/Plan (1) DVT (deep venous thrombosis) Code(s): I82.409 - ACUTE EMBOLISM AND THOMBOS UNSP DEEP VN UNSP LOWER EXTREMITY Status: Acute Comment: continue Eliquis and PRN pain medications. (2) Tobacco abuse Code(s): Z72.0 - TOBACCO USE Status: Chronic - Plan out of bed/ambulate * . Review of Systems - Review of Systems Respiratory: negative: Cough, Shortness of Breath, SOB with Excertion, Pleuritic Pain, Wheezing Cardiovascular: negative: chest pain, palpitations, orthopnea, paroxysmal nocturnal dyspnea, edema, light headedness Musculoskeletal: Leg Pain - Medications/Allergies Allergies/Adverse Reactions: Allergies Allergy/AdvReac Type Severity Reaction Status Date / Time No Known Allergies Allergy Unverified 12/01/18 16:43 Medications: Current Medications Acetaminophen (Tylenol) 650 mg PO Q4H PRN PRN Reason: Headache/Fever/Mild Pain (1-3) Acetaminophen/Codeine Phosphate (Tylenol #3) 1 tab PO Q6H PRN PRN Reason: Mild Pain (1-3) Last Admin: 12/07/18 15:32 Dose: 1 tab Apixaban (Eliquis) 5 mg PO 0600,1800 [facility] Last Admin: 12/07/18 05:26 Dose: 5 mg Bisacodyl (Dulcolax) 10 mg PO DAILYPRN PRN PRN Reason: Constipation Famotidine (Pepcid) 20 mg PO BID [facility] Last Admin: 12/07/18 07:18 Dose: 20 mg Ketorolac Tromethamine (Toradol) 15 mg IVP Q8H PRN PRN Reason: Pain Stop: 12/08/18 12:34 Last Admin: 12/07/18 09:36 Dose: 15 mg Ondansetron HCl (Zofran Odt) 4 mg PO Q6H PRN PRN Reason: Nausea/Vomiting Senna/Docusate Sodium (Senokot S) 2 tab PO BID [facility] Last Admin: 12/07/18 07:18 Dose: 2 tab Sodium Chloride (Flush - Normal Saline) 10 ml IVF Q12HR PRN PRN Reason: Saline Flush Last Admin: 12/03/18 20:07 Dose: 10 ml Sodium Chloride (Flush - Normal Saline) 10 ml IVF PRN PRN PRN Reason: Saline Flush Last Admin: 12/06/18 02:09 Dose: 10 ml Tramadol HCl (Ultram) 50 mg PO Q6H PRN PRN Reason: Moderate Pain (4-6) Tramadol HCl (Ultram) 100 mg PO Q6H PRN PRN Reason: Severe Pain (7-10) Last Admin: 12/07/18 13:28 Dose: 100 mg
[2018-12-08] MEDS: Ketorolac Tromethamine 30 MG/ML VIAL IVP PRN (01:22)
[2018-12-08] MEDS: traMADol HCl 50 MG TAB PO PRN ×3 (03:06→20:01)
[2018-12-08] MEDS: Acetaminophen/Codeine 30-300mg Tablet PO PRN ×3 (06:12→22:27)
[2018-12-08] MEDS: Apixaban 5 MG TAB PO SCH ×2 (06:12→16:28)
[2018-12-08 06:54] LABS: #Basophils 0.1 thou/uL (0.0-0.2); #Eosinphils 0.7 thou/uL (0.0-0.7); #Lymphocytes 3.2 thou/uL (1.20-3.40); #Monocytes 1.3 thou/uL (0.11-0.59); #Neutrophils 6.6 thou/uL (1.40-6.50); %Eosinophils 5.8 % (0.0-10.0); %Lymphocytes 26.7 % (21.0-51.0); %Monocytes 10.8 % (0.0-10.0); %Neutrophils 55.7 % (42.0-75.0); Hemoglobin 12.2 g/dL (14.0-18.0); Mean Corpuscular HGB CONC 31.1 g/dL (32.0-36.0); Mean Corpuscular Hemoglobin 24.5 pg (27.0-31.0); Mean Corpuscular Volume 78.9 fL (78.0-98.0); Mean Platelet Volume 8.4 fL (7.4-10.4); Platelet Count 245 thou/uL (130-400); RBC Distribution Width 13.1 % (11.5-14.5); Red Blood Cell (RBC) Count 4.95 mill/uL (4.70-6.10); White Blood Cell (WBC) Count 11.8 thou/uL (4.8-10.8)
[2018-12-08 07:08] LABS: Anion Gap 14 mmol/L (10-20); BUN (Urea Nitrogen) 24 mg/dL (8.9-20.6); Calc. Creatinine Clearance 53 mL/min (70-130); Carbon Dioxide 27 mmol/L (22-29); Chloride 104 mmol/L (98-107); Estimated GFR-MDRD 59; Glucose 75 mg/dL (70-105); Potassium 5.5 mmol/L (3.5-5.1); Sodium 139 mmol/L (136-145)
[2018-12-08] MEDS ORDERED: Ketorolac Tromethamine 30 MG/ML VIAL IVP PRN (08:19)
[2018-12-08] MEDS ORDERED: Albuterol Sulfate 1.25 MG/3 ML NEB NEB SCH (08:45)
[2018-12-08] MEDS: Famotidine 20 MG TAB PO SCH ×2 (09:47→20:01)
[2018-12-08] MEDS: Sodium Chloride 0.9% 1,000 ML IV SCH ×2 (09:52→20:00)
[2018-12-08] MEDS: Senokot S 8.6-50 MG TAB PO SCH ×2 (09:53→20:01)
--- NOTE | 2018-12-08 13:36 | PDOC.PN ---
- Subjective Encounter Start Date: 12/08/18 Encounter Start Time: 09:00 Pt seen for followup re: DVT. feels slightly better. - Objective Resuscitation Status - Order Detail: 12/07/18 16:56 Resuscitation Status Routine Resuscitation Status: FULL: Full Resuscitation Discussed with: Patient Vital Signs & Weight: Vital Signs (12 hours) Temp Pulse Resp BP Pulse Ox 12/08/18 07:45 98.1 F 64 16 104/63 96 Weight Weight 134 lb 14.766 oz I&O: 12/07/18 12/08/18 12/09/18 06:59 06:59 06:59 Intake Total 760 Output Total 200 Balance 560 Result Diagrams: 12/08/18 06:33 12/08/18 06:33 Phys Exam - Physical Examination Constitutional: NAD HEENT: moist MMs Neck: supple Respiratory: clear to auscultation bilateral Cardiovascular: RRR Gastrointestinal: soft Musculoskeletal: edema present LLE edema present Neurological: moves all 4 limbs Psychiatric: normal affect Dx/Plan (1) DVT (deep venous thrombosis) Code(s): I82.409 - ACUTE EMBOLISM AND THOMBOS UNSP DEEP VN UNSP LOWER EXTREMITY Status: Acute Comment: on Eliquis and PRN pain medications. (2) CANDE (acute kidney injury) Code(s): N17.9 - ACUTE KIDNEY FAILURE, UNSPECIFIED Status: Acute Comment: ? prerenal, start IV fluids and recheck creatinine. Discontinue toradol. (3) Hyperkalemia Code(s): E87.5 - HYPERKALEMIA Status: Acute Comment: administer kayexalate, beta agonist nebulizers, recheck (4) Tobacco abuse Code(s): Z72.0 - TOBACCO USE Status: Chronic - Plan * . Review of Systems - Review of Systems Constitutional: negative: fever, chills, sweats, weakness, malaise Cardiovascular: edema Musculoskeletal: Leg Pain. negative: Neck Pain, Shoulder Pain, Arm Pain, Back Pain, Hand Pain, Foot Pain, Other - Medications/Allergies Allergies/Adverse Reactions: Allergies Allergy/AdvReac Type Severity Reaction Status Date / Time No Known Allergies Allergy Unverified 12/01/18 16:43 Medications: Current Medications Acetaminophen (Tylenol) 650 mg PO Q4H PRN PRN Reason: Headache/Fever/Mild Pain (1-3) Acetaminophen/Codeine Phosphate (Tylenol #3) 1 tab PO Q6H PRN PRN Reason: Mild Pain (1-3) Last Admin: 12/08/18 06:12 Dose: 1 tab Apixaban (Eliquis) 5 mg PO 0600,1800 [facility] Last Admin: 12/08/18 06:12 Dose: 5 mg Bisacodyl (Dulcolax) 10 mg PO DAILYPRN PRN PRN Reason: Constipation Famotidine (Pepcid) 20 mg PO BID [facility] Last Admin: 12/08/18 09:47 Dose: 20 mg Sodium Chloride (Normal Saline 0.9%) 1,000 mls @ 100 mls/hr IV .Q10H [facility] Last Admin: 12/08/18 09:52 Dose: 1,000 mls Ketorolac Tromethamine (Toradol) 15 mg IVP Q8H PRN PRN Reason: Pain Stop: 12/13/18 08:20 Last Admin: 12/08/18 12:35 Dose: 15 mg Ondansetron HCl (Zofran Odt) 4 mg PO Q6H PRN PRN Reason: Nausea/Vomiting Last Admin: 12/08/18 12:35 Dose: 4 mg Senna/Docusate Sodium (Senokot S) 2 tab PO BID [facility] Last Admin: 12/08/18 09:53 Dose: Not Given Sodium Chloride (Flush - Normal Saline) 10 ml IVF Q12HR PRN PRN Reason: Saline Flush Last Admin: 12/03/18 20:07 Dose: 10 ml Sodium Chloride (Flush - Normal Saline) 10 ml IVF PRN PRN PRN Reason: Saline Flush Last Admin: 12/06/18 02:09 Dose: 10 ml Tramadol HCl (Ultram) 50 mg PO Q6H PRN PRN Reason: Moderate Pain (4-6) Tramadol HCl (Ultram) 100 mg PO Q6H PRN PRN Reason: Severe Pain (7-10) Last Admin: 12/08/18 09:46 Dose: 100 mg
[2018-12-09] MEDS: traMADol HCl 50 MG TAB PO PRN ×4 (02:38→23:01)
[2018-12-09] MEDS: Sodium Chloride 0.9% 1,000 ML IV SCH ×3 (05:24→23:02)
[2018-12-09] MEDS: Apixaban 5 MG TAB PO SCH ×2 (05:24→16:27)
[2018-12-09] MEDS: Acetaminophen/Codeine 30-300mg Tablet PO PRN ×3 (05:24→19:54)
[2018-12-09] MEDS: Famotidine 20 MG TAB PO SCH ×2 (08:34→19:53)
[2018-12-09] MEDS: Senokot S 8.6-50 MG TAB PO SCH ×2 (08:35→19:54)
--- NOTE | 2018-12-09 16:09 | PDOC.PN ---
- Subjective Encounter Start Date: 12/09/18 Encounter Start Time: 16:08 Subjective: Still with left lower extremity edema. No new problem -: Developed cande during hospitalization. - Objective Resuscitation Status - Order Detail: 12/07/18 16:56 Resuscitation Status Routine Resuscitation Status: FULL: Full Resuscitation Discussed with: Patient Vital Signs & Weight: Vital Signs (12 hours) Temp Pulse Resp BP Pulse Ox 12/09/18 08:00 98 12/09/18 07:41 98.3 F 66 16 117/75 97 Weight Admit Weight 134 lb 14.766 oz Weight 134 lb 14.766 oz I&O: 12/08/18 12/09/18 12/10/18 06:59 06:59 06:59 Intake Total 2814 Output Total 350 Balance 2464 Result Diagrams: 12/08/18 06:33 12/08/18 06:33 Phys Exam - Physical Examination HEENT: PERRLA, moist MMs, sclera anicteric Neck: no nodes, supple, full ROM Respiratory: no wheezing, no rales, no rhonchi Cardiovascular: RRR, no significant murmur, no rub Gastrointestinal: soft, non-tender, no distention, positive bowel sounds Marked swelling of left lower limb. Neurological: non-focal, normal sensation, moves all 4 limbs Psychiatric: normal affect, A&O x 3 Skin: no rash Dx/Plan (1) CANDE (acute kidney injury) Code(s): N17.9 - ACUTE KIDNEY FAILURE, UNSPECIFIED Status: Acute Comment: ? prerenal, start IV fluids and recheck creatinine. Discontinue toradol. (2) DVT (deep venous thrombosis) Code(s): I82.409 - ACUTE EMBOLISM AND THOMBOS UNSP DEEP VN UNSP LOWER EXTREMITY Status: Acute Comment: on Eliquis and PRN pain medications. (3) Hyperkalemia Code(s): E87.5 - HYPERKALEMIA Status: Acute Comment: administer kayexalate, beta agonist nebulizers, recheck (4) Tobacco abuse Code(s): Z72.0 - TOBACCO USE Status: Chronic - Plan Continue IVF -: Repeat BMP -: Get Repeat UA -: If no improvement, we will get renal U/S with dopplers. * .
[2018-12-09 16:52] LABS: Bilirubin Negative (Negative); Blood, Urine Negative (Negative); Clarity CLEAR (Clear); Glucose, Urine (Dipstick) Negative (Negative); Leukocyte Negative (Negative); Nitrite Negative (Negative); Protein, Urine (Dipstick) Negative (Neg-Trace); Specific Gravity, Urine 1.005 (1.002-1.036); Urobilinogen 0.2 mg/dL (0.2-1.0); pH, Urine 7.5 (5.0-9.0)
[2018-12-09 16:55] LABS: Bacteria/HPF None Seen HPF (None Seen); Hyaline Casts/LPF 0-3 HYALINE CAST LPF (0-3 Hyaline); RBC/HPF 0-3 HPF (0-3); Squamous Epithelial None Seen HPF (0-3); WBC/HPF None Seen HPF (0-3)
[2018-12-09 16:59] LABS: Urine Culture Reflex No No
[2018-12-09 17:21] LABS: Anion Gap 11 mmol/L (10-20); BUN (Urea Nitrogen) 19 mg/dL (8.9-20.6); Calc. Creatinine Clearance 67 mL/min (70-130); Calcium 9.1 mg/dL (7.8-10.44); Carbon Dioxide 26 mmol/L (22-29); Chloride 105 mmol/L (98-107); Estimated GFR-MDRD 77; Glucose 95 mg/dL (70-105); Potassium 5.1 mmol/L (3.5-5.1); Sodium 137 mmol/L (136-145)
[2018-12-10] MEDS: Acetaminophen/Codeine 30-300mg Tablet PO PRN ×2 (02:05→08:30)
[2018-12-10] MEDS: traMADol HCl 50 MG TAB PO PRN ×2 (05:08→12:06)
[2018-12-10] MEDS: Apixaban 5 MG TAB PO SCH (05:08)
[2018-12-10 07:42] VITALS: BP 105/58; TEMP 98
[2018-12-10] MEDS: Famotidine 20 MG TAB PO SCH (08:30)
[2018-12-10] MEDS: Sodium Chloride 0.9% 1,000 ML IV SCH (08:31)
[2018-12-10 09:24] LABS: Anion Gap 10 mmol/L (10-20); BUN (Urea Nitrogen) 13 mg/dL (8.9-20.6); Calc. Creatinine Clearance 71 mL/min (70-130); Calcium 9.5 mg/dL (7.8-10.44); Carbon Dioxide 28 mmol/L (22-29); Chloride 105 mmol/L (98-107); Estimated GFR-MDRD 82; Glucose 72 mg/dL (70-105); Potassium 4.1 mmol/L (3.5-5.1); Sodium 139 mmol/L (136-145)
[2018-12-10] MEDS: Senokot S 8.6-50 MG TAB PO SCH (12:09)
--- NOTE | 2018-12-10 12:45 | PDOC.EVN ---
Event Note - Event Note Event Note: Seen and examined CANDE; resolving. Creat close to baselin. Plan: For discharge today
--- NOTE | 2018-12-10 13:18 | DIS ---
DATE OF ADMISSION: 12/01/2018 DATE OF DISCHARGE: 12/10/2018 DISCHARGE DIAGNOSES: 1. Extensive deep vein thrombosis of left lower extremity. 2. Left lower extremity swelling. 3. Acute kidney injury. 4. Acute pain. 5. Chronic tobacco abuse disorder. 6. Leukocytosis. CONSULT: Hematology. 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 Evaluation with venous Doppler was positive for extensive deep vein thrombosis. Acute PE was ruled out with CT angio. The patient was treated with anticoagulation, and analgesic with improvement. Initially was on Lovenox, which was later transitioned to oral Eliquis. Due to extensive nature of the DVT, Hematology consult was obtained and chronic anticoagulation was recommended for at least six months. Hospital course was complicated by the development of acute kidney injury, which was thought to be related to use of NSAIDs. NSAIDs were discontinued and the patient was treated with IV fluid with resolution of CANDE. The patient remained stable and was subsequently discharged home. The patient has no insurance and case management was involved and a voucher for free 30-day supply of Eliquis was provided for patient to subsequently follow with PCP, with our plan to help him get further supply. PHYSICAL EXAMINATION: VITAL SIGNS: BP 105/58, pulse 68, respiratory rate 18, SpO2 of 96% on room air, and temperature 98.0. GENERAL: Young male, in no obvious distress. Afebrile, anicteric, acyanotic. HEENT: Normocephalic, atraumatic. Pupils are equal and reactive to light. CARDIAC: Regular rhythm and rate with normal heart sounds 1 and 2. No murmur was appreciated. RESPIRATORY: Good air entry bilaterally with no obvious crackle or rhonchi. ABDOMEN: Full, soft, nontender, nondistended with normal bowel sounds. EXTREMITIES: Extensive diffuse swelling of left lower extremity up to the thigh. There was no edema or ecchymosis and distal pulses are palpable. NEUROLOGIC: Conscious and alert, oriented x3 with appropriate mental status. Cranial nerves 2 through 12 are intact. The patient moves all extremities. DISCHARGE CONDITION: Improved and satisfactory. TIME SPENT: This discharge took more than 35 minutes. Job ID: [id number]
== END 2018-12-10 17:15 | disposition home or self-care (01) | DRG 300 ==
LOC: ERS 13:18 → T4-B 15:10
PROVIDERS: ADMIT Internal Medicine; ATTEND Internal Medicine
DX: I82.412 Acute embolism and thrombosis of left femoral vein (principal); N17.9 Acute kidney failure, unspecified; I82.432 Acute embolism and thrombosis of left popliteal vein; I82.442 Acute embolism and thrombosis of left tibial vein; F17.210 Nicotine dependence, cigarettes, uncomplicated; D72.829 Elevated white blood cell count, unspecified; E87.5 Hyperkalemia; Z82.3 Family history of stroke
CPT/HCPCS: 36415; 71046; 71275; 74177; 80048; 80053; 81001; 83605; 84484; 85025; 85610; 85730; 93005; 96372; 96374; 96375; 96376; J1650; J1885; J2270; Q0162; Q9966; Q9967